=== PATIENT | male | born 1950 | race Caucasian/White ===

== ENCOUNTER → 2018-02-15 | Outpatient (CLI) | payer BC | LOC: COL.RAD 02-10 09:45 | DX: K76.0 Fatty (change of) liver, not elsewhere classified (principal); E11.9 Type 2 diabetes mellitus without complications; D75.1 Secondary polycythemia | CPT/HCPCS: A9585 ==

== ENCOUNTER 2020-07-03 09:02 | Outpatient (CLI) | payer MEDICARE ==
[~2020-07-03] VITALS: Ht 177.8 cm; Wt 99.1 kg
[~2020-07-03 09:02] MED LIST: AMBIEN 10MG10 MG PO; GLUCOPHAGE500 MG/TAB PO; NEURONTIN100 MG/CAP PO; NORVASC 5MG5 MG/TAB PO; RT ADVAIR 128 DISKUS IH; ZESTRIL 10MG10 MG PO; ZETIA 10MG TAB10 MG PO; ZOCOR 10MG10 MG PO
[2020-07-03] MEDS ORDERED: CELEXA40 MG PO (10:31)
[2020-07-03] MEDS ORDERED: ENABLEX15 MG PO (10:33)
[2020-07-03] MEDS ORDERED: NEURONTIN400 MG/CAP PO (10:34)
[2020-07-03 10:35] VITALS: BP 128/81; PULSE 88
[2020-07-03] MEDS ORDERED: PROTONIX 40MG T40 MG PO (10:35)
[2020-07-03 11:25] VITALS: BP 139/85; PULSE 82
[2020-07-03 11:40] VITALS: BP 133/82; PULSE 83
--- NOTE | 2020-07-03 11:40 | NUR ---
Pt resting in bed. Denies pain and needs at this time. Bandaid to lower back CD&I. VSS
[2020-07-03 11:55] VITALS: BP 125/90; PULSE 92
[2020-07-03 12:25] VITALS: BP 121/89; PULSE 88
[2020-07-03 13:00] VITALS: BP 120/82; PULSE 82
--- NOTE | 2020-07-03 13:00 | NUR ---
Discharge instructions given. Transferred to private car by jaimee
== END 2020-07-03 13:24 | disposition home or self-care (01) ==
LOC: COL.RAD 09:02
DX: F03.90 Unspecified dementia, unspecified severity, without behavioral disturbance, psychotic disturbance, mood disturbance, and anxiety (principal); R26.9 Unspecified abnormalities of gait and mobility; R32 Unspecified urinary incontinence